=== PATIENT | male | born 1955 | race Caucasian/White ===

== ENCOUNTER 2016-08-17 17:17 | Emergency (ER) | payer BC ==
[~2016-08-17 17:17] MED LIST: ADVIL PO; CIP5 PO; ENDOCET1 TAB PO; FLEXERIL5 MG PO; FLOMAX4 PO; NAP500 PO; NORCO1 TA1 PO; OXYCOD PO
== END 2016-08-17 17:40 | disposition left against medical advice (07) ==
LOC: ER 17:17
DX: M79.602 Pain in left arm (principal); Z53.21 Procedure and treatment not carried out due to patient leaving prior to being seen by health care provider
CPT/HCPCS: 93005